=== PATIENT | male | born 1970 | race Caucasian/White ===

== ENCOUNTER → 2016-08-07 | Outpatient (CLI) | payer OTHER | LOC: RAD 13:59 | DX: M25.552 Pain in left hip (principal) ==

== ENCOUNTER → 2016-12-17 | Outpatient (CLI) | payer OTHER ==
--- NOTE | 2016-12-11 08:25 | HISTORY AND PHYSICAL E ---
History and Physical NAME: PAT HOBBS : 1970 AGE: 46Y ADMITTED: 12/17/2016 ROOM: The patient is scheduled for colonoscopy sometime next week in the OR. REFERRAL: [place]. HISTORY OF PRESENT ILLNESS: A 89-year-old male referred to us from the [facility]. He originally was living in the [place] in [place] after CT showing the lesion in the rectosigmoid, he moved to live with his daughter. Now, he is for colon exam. PAST SURGICAL HISTORY: 1. He did have colonoscopy in [facility] 15 years ago. 2. Cholecystectomy. 3. Outpatient colon exam shows possibility of the lesion distal sigmoid or proximal rectum. SOCIAL HISTORY: The patient is . He does not drink. He does not smoke. REVIEW OF SYSTEMS: CARDIAC: High cholesterol. ENDOCRINE: Diabetes. RESPIRATORY: Negative. GASTROINTESTINAL: Abnormal CT sigmoid lesion. The patient does have vitamin D deficiency. FAMILY HISTORY: Father of old age. Mom of old age. PHYSICAL EXAMINATION: GENERAL: The patient is 89. The patient looked younger than his stated age. VITAL SIGNS: Blood pressure 110/70. He has difficulty of hearing. Weight 173. Pulse 80, respirations 18, temp is 98. HEAD, EYES, EARS, NOSE AND THROAT: Normal. ABDOMEN: Soft. NEUROLOGICAL: Exam negative. CONCLUSIONS: Abnormal CT, question rectosigmoid lesion. PLAN: Arrange for colonoscopy to be done in the OR with anesthesia standby. MEDICATIONS: 1. One medication for prostate. 2. One medication for cholesterol. DICTATING PHYSICIAN: MAMIE BORRERO M.D. 1221M 1627 Y#: [id number] ID: [id number] JOB#: [id number] ACCT: [id number] cc:MAMIE BORRERO M.D. >
[~2016-12-17] MED LIST: ALBUTEROL SULFATE 0.083% NEB 2.5 MG/3 ML AMPUL NEB ONE
[2016-12-17 11:03] LABS: ABSOLUTE BASOPHILS # (AUTO) 0.1 10^3/uL (0.0-0.2); ABSOLUTE EOSINOPHILS # (AUTO) 0.2 10^3/uL (0.0-0.6); ABSOLUTE LYMPHOCYTES (AUTO) 2.2 10^3/uL (0.5-4.7); ABSOLUTE MONOCYTES (AUTO) 0.7 10^3/uL (0.1-1.4); ABSOLUTE NEUT (AUTO) 5.6 10^3/uL (1.7-8.2); BASOPHILS % (AUTO) 0.7 % (0-2); EOSINOPHILS % (AUTO) 2.1 % (0-6); HEMATOCRIT 46.4 % (37.9-51.0); HEMOGLOBIN 15.7 g/dL (13.5-17.0); HGB HCT DIFFERENCE 0.7; LYMPHOCYTES % (AUTO) 25.6 % (13-45); MEAN CORPUSCULAR HEMOGLOBIN 32.3 pg (27.0-33.4); MEAN CORPUSCULAR HGB CONC 33.9 g/dL (32.0-36.0); MEAN CORPUSCULAR VOLUME 95 fl (80-97); MONOCYTES % (AUTO) 7.7 % (3-13); RED BLOOD COUNT 4.87 10^6/uL (4.35-5.55); RED CELL DISTRIBUTION WIDTH 12.6 % (11.5-14.0); SEGMENTED NEUTROPHILS % (AUTO) 63.9 % (42-78); WHITE BLOOD COUNT 8.8 10^3/uL (4.0-10.5)
[2016-12-17 11:22] LABS: ALANINE AMINOTRANSFERASE 43 U/L (21-72); ALBUMIN 4.5 g/dL (3.5-5.0); ALKALINE PHOSPHATASE 65 U/L (38-126); ANION GAP 11 (5-19); ASPARTATE AMINO TRANSFERASE 29 U/L (17-59); BILIRUBIN,DIRECT 0.2 mg/dL (0.0-0.4); BILIRUBIN,TOTAL 0.9 mg/dL (0.2-1.3); BLOOD UREA NITROGEN 13 mg/dL (7-20); CALCIUM 10.2 mg/dL (8.4-10.2); CARBON DIOXIDE 26 mmol/L (22-30); CHLORIDE 106 mmol/L (98-107); CHOLESTEROL 176.19 mg/dL (0-200); CREATININE RESULT 0.85 mg/dL (0.52-1.25); Direct HDL 50 mg/dL (>40); GLUCOSE 110 mg/dL (75-110); POTASSIUM 4.6 mmol/L (3.6-5.0); SODIUM 142.7 mmol/L (137-145); TRIGLYCERIDES 117 mg/dL (<150)
[2016-12-17 11:33] LABS: DIRECT LDL 86 mg/dL (<100)
--- NOTE | 2016-12-19 08:48 | PULMONARY FUNCTION TEST ---
DATE OF SERVICE: 12/17/2016 THE VITAL CAPACITY IS NORMAL. THE EXPIRATORY FLOW RATES ARE SLIGHTLY DECREASED. THE FEV1/VC IS 63%, PREDICTED: 81% AFTER BRONCHODILATOR, EXPIRATORY FLOW RATES SHOW SIGNIFICANT IMPROVEMENT. IMPRESSION: GOOD PATIENT EFFORT. SLIGHT OBSTRUCTIVE DEFECT WITH SIGNIFICANT IMPROVEMENT IN EXPIRATORY FLOW RATES AFTER BRONCHODILATOR. CC[facility]
== END ==
LOC: RT 09:45
DX: Z00.00 Encounter for general adult medical examination without abnormal findings (principal); R05 Cough
CPT/HCPCS: 36415; 80053; 80061; 83036; 84443; 85025; 94060

== ENCOUNTER → 2017-02-03 | Outpatient (CLI) | payer OTHER ==
--- NOTE | 2017-02-03 14:29 | RADIOLOGY REPORT (SQ) ---
EXAM DESCRIPTION: CERV SP 6 OR MORE COMPLETED DATE/TIME: 02/03/2017 2:14 pm REASON FOR STUDY: CHRONIC RIGHT SHOULDER PAIN (M25.511) M25.511 PAIN IN RIGHT SHOULDER M54.2 CERVI CALGIA COMPARISON: None. NUMBER OF VIEWS: Seven views. TECHNIQUE: AP, lateral, obliques, flexion, extension, and odontoid radiographic images acquired of t he cervical spine. LIMITATIONS: None. FINDINGS: MINERALIZATION: Normal. ALIGNMENT: Anatomic. FLEXION/EXTENSION: No instability. VERTEBRAE: Vertebral bodies of normal height. DISCS: There is multilevel spondylosis. Changes are most prominent at C3-4 C4-5 and C6-C7. FORAMINA: There is foraminal narrowing on the right at C3-4 and C4-5. LATERAL AND POSTERIOR ELEMENTS: Facets, lateral masses, and spinous processes without significant fin dings. HARDWARE: None in the spine. SOFT TISSUES: No masses or calcifications. Lung apices clear. OTHER: No other significant finding. IMPRESSION: Mild multilevel spondylosis. No instability. NO INSTABILITY ON FLEXION/EXTENSION. TECHNICAL DOCUMENTATION: JOB ID: [id number] [employer]- All Rights Reserved
--- NOTE | 2017-02-03 14:30 | RADIOLOGY REPORT (SQ) ---
EXAM DESCRIPTION: SHOULDER RIGHT 2 OR MORE VIEWS COMPLETED DATE/TIME: 02/03/2017 2:14 pm REASON FOR STUDY: CHRONIC RIGHT SHOULDER PAIN (M25.511) M25.511 PAIN IN RIGHT SHOULDER M54.2 CERVI CALGIA COMPARISON: None. NUMBER OF VIEWS: Three views. TECHNIQUE: Internal rotation, external rotation, and Y view images acquired of the right shoulder. LIMITATIONS: None. FINDINGS: MINERALIZATION: Normal. BONES: No acute fracture or dislocation. No worrisome bone lesions. No significant osteophytes. GLENOHUMERAL JOINT: No significant findings. ACROMIOCLAVICULAR JOINT: No large osteophytes. SOFT TISSUES: No calcifications. VISUALIZED RIBS, SPINE, AND LUNG: No other significant finding. OTHER: No other significant finding. IMPRESSION: NEGATIVE STUDY OF THE RIGHT SHOULDER. NO EXPLANATION FOR PAIN. TECHNICAL DOCUMENTATION: JOB ID: [id number] [employer]- All Rights Reserved
== END ==
LOC: RAD 13:11
PROVIDERS: ATTEND Physical Medicine & Rehabilitation Pain Medicine
DX: M25.511 Pain in right shoulder (principal); G89.29 Other chronic pain; M54.2 Cervicalgia
CPT/HCPCS: 72050

== ENCOUNTER → 2017-03-20 | Outpatient (CLI) | payer OTHER ==
--- NOTE | 2017-03-20 15:01 | RADIOLOGY REPORT (SQ) ---
EXAM DESCRIPTION: UPPER GI/SM BOWEL COMPLETED DATE/TIME: 03/20/2017 11:00 am REASON FOR STUDY: GASTRO ESOPHAGEAL REFLUX W/O ESOPHAGITIS COMPARISON: None. TECHNIQUE: Under fluoroscopic guidance, patient ingested effervescent granules followed by thick an d thin barium. Fluoroscopic spot images and routine radiographic images acquired and stored on PACS . Following evaluation of esophagus and stomach, additional barium administered with serial delayed ab dominal radiographs until colonic identification. Fluoroscopic images recorded of the terminal ileu m. 12 MM BARIUM TABLET GIVEN: Yes. No significant delay in passage. FLUOROSCOPY TIME: 0.4 minutes Multiple fluoroscopic images saved to PACS. LIMITATIONS: None. FINDINGS: NEUROMUSCULAR COORDINATION OF SWALLOW: Normal. No aspiration. ESOPHAGEAL MOTILITY: Normal peristalsis. No esophageal spasm. ESOPHAGEAL MUCOSA: Normal mucosa without masses or ulceration. GASTRO-ESOPHAGEAL JUNCTION: Small sliding hiatal hernia. No reflux observed. STOMACH: Normal without masses or ulcerations. GASTRIC OUTLET: No delay in emptying. Normal pylorus. DUODENAL BULB: Normal distention. No spasm or ulceration. DUODENUM: Mucosa normal. No extrinsic masses or malrotation. PROXIMAL SMALL BOWEL: Normal as visualized. JEJUNUM: Normal mucosal pattern. No dilatation, segmentation, strictures or masses. ILEUM: Normal mucosal pattern. No dilatation, segmentation, strictures or masses. TERMINAL ILEUM AND ILEO-CECAL VALVE: Normal mucosal pattern without cobble-stoning or stricture. Nor mal compression. PROXIMAL COLON: Incompletely imaged. No abnormality. NON-GI TRACT STRUCTURES: No significant finding. OTHER: No other significant finding. IMPRESSION: Small sliding hiatal hernia. No stricture. No reflux observed. Normal small bowel. COMMENT: Quality ID 145: Final reports for procedures using fluoroscopy that document radiation exp osure indices, or exposure time and number of fluorographic images (if radiation exposure indices are not available) TECHNICAL DOCUMENTATION: JOB ID: [id number] [employer]- All Rights Reserved
== END ==
LOC: RAD 08:06
DX: K21.9 Gastro-esophageal reflux disease without esophagitis (principal)
CPT/HCPCS: 74249

== ENCOUNTER → 2017-03-24 | Outpatient (CLI) | payer OTHER ==
[~2017-03-24] MED LIST changes: -ALBUTEROL SULFATE 0.083% NEB 2.5 MG/3 ML AMPUL NEB ONE; +AMINOPHYLLINE INJ/PF 250 MG/10 ML SDV IV ONE; +REGADENOSON INJ 0.4 MG/5 ML DISP.SYRIN IV ONE
--- NOTE | 2017-03-25 18:17 | RADIOLOGY REPORT ---
STRESS TEST REPORT [id number] ROOM#: DATE OF SERVICE: 03/24/2017 AGE: 46Y ORDER#: [id number] REFERRING MD: INDICATION: Chest pains with strenuous activity. PROCEDURE PERFORMED: Rest/stress single-isotope Cardiolite SPECT imaging with exercise stress and gated SPECT imaging with an IV Lexiscan stress and gated SPECT imaging. CLINICAL HISTORY: This 46-year-old male with no known coronary artery disease, but has history of smoking and abnormal plasma protein currently complains of chest pain with strenuous activities. REPORT The patient received IV Lexiscan of 0.4 mg infused over 10 seconds. The resting heart rate was 57 BPM and increased to 87 BPM at end infusion. His resting blood pressure was 129/90 and increased to 133/71 at end infusion. The patient had symptoms of dizziness. No chest pain. Some chest tightness. No shortness of breath. A 12-lead electrocardiogram at rest showed normal sinus rhythm 57 BPM. At end infusion, no ST changes were seen. Myocardial perfusion imaging was performed at rest 60 minutes following the injection of 11.12 mCi of Cardiolite. Ten seconds after the infusion, 40.2 mCi of Cardiolite was injected and flushed. Gated post-stress tomographic imaging was performed 60 minutes after stress. SUMMARY OF FINDINGS/IMPRESSION: The overall quality of the study is good. The left ventricular cavity is noted to be normal in size on both the rest and stress studies. There is no evidence of abnormal transient ischemic dilatation of the left ventricle. SPECT images showed a moderate area of moderate reversible ischemia in the inferior wall with incomplete reversibility. There is no fixed perfusion defect. Gated SPECT imaging showed reduced motion contraction in the basilar inferior wall only. The left ventricular ejection fraction is calculated at 53%. IMPRESSION: Myocardial perfusion imaging is abnormal. There is a moderate area of moderate reversible ischemia in the inferior wall with incomplete reversibility. There is reduced contraction in the basal inferior wall on gated SPECT. The overall left ventricular ejection fraction was within normal at 53%. No prior study for comparison. INTERPRETING PHYSICIAN: MADGA ANDINO M.D. /: 1221M TT: 2103 ID: [id number] /: [id number] TD: 0850 JOB: [id number] cc:MAGDA ANDINO M.D. > VALERIOD
== END ==
LOC: RAD 06:29
DX: R77.9 Abnormality of plasma protein, unspecified (principal)
CPT/HCPCS: 93017; 78452; A9500; J2785; J0280; Q9969

== ENCOUNTER → 2017-04-02 | Outpatient (CLI) | payer OTHER ==
--- NOTE | 2017-04-02 14:56 | RADIOLOGY REPORT (SQ) ---
EXAM DESCRIPTION: CAROTID DOPPLER COMPLETED DATE/TIME: 04/02/2017 2:21 pm REASON FOR STUDY: DIZZINESS R07.9 CHEST PAIN, UNSPECIFIED R42 DIZZINESS AND GIDDINESS COMPARISON: Cervical spine plain films 02/03/2017. No brain parenchymal imaging available for compar kierra TECHNIQUE: Grayscale ultrasound, Doppler velocity and spectra, and color Doppler images acquired of the extra-cranial carotid and vertebral arteries. Images stored on PACS. LIMITATIONS: None. FINDINGS: RIGHT CAROTID CCA Velocities: Within normal limits. ICA Velocities Peak systolic 0.8 m/s. End diastolic 0.25 m/s. Proximal ICA/CCA peak systolic ratio 0.7. Spectra normal. No significant plaque. LEFT CAROTID CCA Velocities: Within normal limits. ICA Velocities Peak systolic 0.62 m/s. End diastolic 0.25 m/s. Proximal ICA/CCA peak systolic ratio 0.7. Spectra normal. No significant plaque. VERTEBRAL ARTERIES: Antegrade flow. Normal waveforms. SUBCLAVIAN ARTERIES: Not evaluated OTHER: No other significant finding. IMPRESSION: NO HEMODYNAMICALLY SIGNIFICANT STENOSIS. COMMENT: Quality ID #[id number]: Velocity criteria are extrapolated from the diameter data as defined by t he Society of Radiologists in Ultrasound Consensus Conference. Radiology 2003: 229; 340-346. TECHNICAL DOCUMENTATION: JOB ID: [id number] [employer]- All Rights Reserved
== END ==
LOC: SP 12:51
PROVIDERS: ATTEND Internal Medicine
DX: R07.9 Chest pain, unspecified (principal); R42 Dizziness and giddiness
CPT/HCPCS: 93306; 93880

== ENCOUNTER → 2017-05-07 | Outpatient (CLI) | payer OTHER ==
--- NOTE | 2017-05-08 12:47 | XCELERA REPORT ---
[address] [address] Lower Extremity Arterial Evaluation Name: PAT HOBBS Age: 46 yrs Gender: Male : 1970 Patient Status: Outpatient Patient Location: Study Date: 05/07/2017 03:23 PM Procedure: A color flow and duplex scan of the lower extremity arteries was performed bilaterally with velocity and waveform anaylsis. Reason For Study: ATHEROSCLEROSIS Ordering Physician: BERNABE COHEN Performed By: Nimesh Zelaya Measurements and Calculations Right Left TICKET SORTER PSV 114.7 96.8 cm/sec Prox PFA PSV -69.7 -65.9 cm/sec Dist SFA PSV -94.9 -86.1 cm/sec Dist Pop A PSV 50.3 53.0 cm/sec Dist HANK PSV 98.5 59.3 cm/sec Dist PHYSICAL SECURITY ENGINEER PSV 27.8 56.2 cm/sec Jignesh Pedis PSV 64.0 55.4 cm/sec Right Side Arterial Evaluation Normal velocity and triphasic waveforms noted from the Common Femoral artery to the infregeniculate vessels. 0 % stenosis noted. Ankle Brachial index is 1.06. Left Side Arterial Evaluation Normal velocity and triphasic waveforms noted from the Common Femoral artery to the infregeniculate vessels. 0 % stenosis noted. Ankle Brachial index is 1.12. Interpretation Summary No hemodynamically significant lesions in the bilateral lower extremities, on duplex imaging, at rest. : BERNABE COHEN > Girish Baxter
== END ==
LOC: SP 15:06
PROVIDERS: ATTEND Internal Medicine
DX: I70.203 Unspecified atherosclerosis of native arteries of extremities, bilateral legs (principal)
CPT/HCPCS: 93925

== ENCOUNTER 2017-05-13 17:54 | Emergency (ER) | payer OTHER ==
[2017-05-13] MEDS ORDERED: FAMOTIDINE 20 MG TABLET PO ONE (19:53)
[2017-05-13] MEDS ORDERED: ASPIRIN 81 MG TABLET, CHEWABLE PO ONE (19:53)
--- NOTE | 2017-05-13 19:56 | ER Document Report ---
ED General - General Chief Complaint: Chest Tightness Stated Complaint: WEAKNESS, TIGHTNESS IN CHEST Time Seen by Provider: 05/13/17 19:34 Notes: Patient is a 46-year-old male comes emergency department for chief complaint of "feeling bad" since 1 PM, he states that he started feeling like he was running a fever, he states he started feeling like he was not breathing well, asked if he had any chest pain and he tells me "no, it was a breathing thing". He denies shortness of breath or chest pain now. He still notes feeling unwell. He denies nausea or vomiting, headache, dizziness, lightheadedness. Past medical history of COPD, former smoker, on inhalers, also states that within the past month he had a stress echo and was told that the inferior wall appeared abnormal. He denies history of NE, denies family history of NE, blood clots, he denies recent travel, surgery, lower extremity swelling. He reports his cough is his normal cough. TRAVEL OUTSIDE OF THE [place] IN LAST 30 DAYS: No - Related Data Allergies/Adverse Reactions: No Known Allergies Allergy (Verified 07/13/16 08:18) Home Medications: Current Home Medications Aspirin 81 mg PO DAILY 05/13/17 [History] Celecoxib [Celebrex 200 mg Capsule] 200 mg PO DAILY 05/13/17 [History] Fluticasone/Vilanterol [Breo Ellipta 100-25 Mcg INH] 1 each IH DAILY 05/13/17 [ History] Ipratropium/Albuterol Sulfate [Combivent Respimat Inhal [place]] 4 gm IH DAILY [History] Magnesium Gluconate [Magimin] 500 mg PO DAILY 05/13/17 [History] Nitroglycerin [Nitrostat] 0.4 mg SL PRN PRN 05/13/17 [History] Omeprazole 20 mg PO DAILY 05/13/17 [History] Past Medical History - Social History Smoking Status: Former Smoker Chew tobacco use (# tins/day): No Frequency of alcohol use: Occasional Drug Abuse: None Family History: Reviewed & Not Pertinent Patient has suicidal ideation: No Patient has homicidal ideation: No Pulmonary Medical History: Reports: Hx COPD Renal/ Medical History: Denies: Hx Peritoneal Dialysis GI Medical History: Reports: Hx Gastroesophageal Reflux Disease, Hx Hiatal Hernia Traumatic Medical History: Reports: Hx Fractures - back, T12-L4? Past Surgical History: Reports: Hx Orthopedic Surgery - Immunizations Hx Diphtheria, Pertussis, Tetanus Vaccination: Yes - unk date Physical Exam - Vital signs Vitals: Temp Pulse Resp BP Pulse Ox 99.1 F 89 18 122/76 97 05/13/17 18:07 05/13/17 18:07 05/13/17 18:07 05/13/17 18:07 05/13/17 18:07 Interpretation: Normal - General General appearance: Alert, Other - Patient slightly disheveled and appears mildly ill - HEENT Head: Normocephalic, Atraumatic Eyes: Normal Conjunctiva: Normal Extraocular movements intact: Yes Eyelashes: Normal Pupils: PERRL Nasal: Normal Mouth/Lips: Normal Mucous membranes: Normal Pharynx: Normal Neck: Normal - Respiratory Respiratory status: No respiratory distress. No: Respiratory distress, Labored , Retractions, Tachypnea Chest status: Nontender Breath sounds: Decreased air movement - Slightly decreased air movement on the left side with coarse breath sounds and rhonchi, otherwise clear lungs Chest palpation: Normal - Cardiovascular Rhythm: Regular. No: Tachycardia Heart sounds: Normal auscultation, S1 appreciated, S2 appreciated Murmur: No - Abdominal Inspection: Normal Distension: No distension Bowel sounds: Normal Tenderness: Nontender Organomegaly: No organomegaly - Back Back: Normal, Nontender. No: Tender - Extremities General upper extremity: Normal inspection, Nontender, Normal color, Normal ROM , Normal temperature General lower extremity: Normal inspection, Nontender, Normal color, Normal ROM , Normal temperature, Normal weight bearing. No: Dinesh's sign - Neurological Neuro grossly intact: Yes Cognition: Normal Orientation: AAOx4 [place] Coma Scale Eye Opening: Spontaneous [place] Coma Scale Verbal: Oriented [place] Coma Scale Motor: Obeys Commands [place] Coma Scale Total: 15 Speech: Normal Motor strength normal: LUE, RUE, LLE, RLE Sensory: Normal - Psychological Associated symptoms: Normal affect, Normal mood - Skin Skin Temperature: Warm Skin Moisture: Dry Skin Color: Normal Course - Re-evaluation Re-evalutation: Patient reporting chills, he is slightly flushed, has a cough, has some decreased breath sounds and rhonchi on the left side on auscultation, clinical presentation is more consistent with pneumonia in patient with COPD without COPD exacerbation. No hypoxia, tachypnea, tachycardia, hypotension. CBC shows mild leukocytosis with elevation of neutrophils but no shift, x-ray does not show any abnormality, chemistry unremarkable, cardiac enzymes cycled and are unremarkable. Patient not complaining of any chest pain. On reevaluation she continues to not have any distress or concerning abnormalities, denies current symptoms other than feeling tired and achy. Patient will be treated for pneumonia, discussed plan of care, discussed follow-up, discussed return precautions, patient states understanding and agreement. - Vital Signs Vital signs: Temp Pulse Resp BP Pulse Ox 99.1 F 89 22 H 109/74 96 05/13/17 18:07 05/13/17 18:07 05/13/17 22:01 05/13/17 23:01 05/13/17 23:01 - Laboratory Result Diagrams: 05/13/17 19:45 05/13/17 19:45 Laboratory results interpreted by me: 05/13/17 19:45 WBC 11.6 H Seg Neutrophils % 81.9 H Lymphocytes % 8.2 L Absolute Neutrophils 9.5 H Discharge - Discharge Clinical Impression: Chills, Weakness, Cough, Respiratory symptoms Condition: Stable Disposition: HOME, SELF-CARE Additional Instructions: Your symptoms and evaluation are most consistent with an early pneumonia. Please take the doxycycline antibiotic as prescribed. Take Tylenol or ibuprofen for fever/chills, drink plenty of fluids and rest. Follow-up with primary care provider. Return to emergency department for any concerning or worsening symptoms including difficulty breathing, chest pain, or any other concerning symptoms. Prescriptions: Doxycycline Hyclate 100 mg PO BID #14 capsule Referrals: KARMA MACHADO MD [Primary Care Provider] - Follow up as needed
--- NOTE | 2017-05-13 20:17 | RADIOLOGY REPORT (SQ) ---
EXAM DESCRIPTION: CHEST SINGLE VIEW COMPLETED DATE/TIME: 05/13/2017 8:05 pm REASON FOR STUDY: ? fever, shortness of breath COMPARISON: None. EXAM PARAMETERS: NUMBER OF VIEWS: One view. TECHNIQUE: Single frontal radiographic view of the chest acquired. RADIATION DOSE: NA LIMITATIONS: None. FINDINGS: LUNGS AND PLEURA: No opacities, masses or pneumothorax. No pleural effusion. MEDIASTINUM AND HILAR STRUCTURES: No masses. Contour normal. HEART AND VASCULAR STRUCTURES: Heart normal in size. Normal vasculature. BONES: No acute findings. HARDWARE: None in the chest. OTHER: No other significant finding. IMPRESSION: NO ACUTE RADIOGRAPHIC FINDING IN THE CHEST. TECHNICAL DOCUMENTATION: JOB ID: [id number]
[2017-05-13 21:09] LABS: ABSOLUTE BASOPHILS # (AUTO) 0.2 10^3/uL (0.0-0.2); ABSOLUTE LYMPHOCYTES (AUTO) 0.9 10^3/uL (0.5-4.7); ABSOLUTE NEUT (AUTO) 9.5 10^3/uL (1.7-8.2); BASOPHILS % (AUTO) 1.4 % (0-2); EOSINOPHILS % (AUTO) 0.2 % (0-6); HEMATOCRIT 42.4 % (37.9-51.0); HEMOGLOBIN 14.7 g/dL (13.5-17.0); HGB HCT DIFFERENCE 1.7; LYMPHOCYTES % (AUTO) 8.2 % (13-45); MEAN CORPUSCULAR HEMOGLOBIN 31.9 pg (27.0-33.4); MEAN CORPUSCULAR HGB CONC 34.6 g/dL (32.0-36.0); MEAN CORPUSCULAR VOLUME 92 fl (80-97); MONOCYTES % (AUTO) 8.3 % (3-13); RED CELL DISTRIBUTION WIDTH 12.5 % (11.5-14.0); SEGMENTED NEUTROPHILS % (AUTO) 81.9 % (42-78); WHITE BLOOD COUNT 11.6 10^3/uL (4.0-10.5)
[2017-05-13 21:17] LABS: ALANINE AMINOTRANSFERASE 33 U/L (21-72); ALBUMIN 4.2 g/dL (3.5-5.0); ALKALINE PHOSPHATASE 82 U/L (38-126); ANION GAP 12 (5-19); ASPARTATE AMINO TRANSFERASE 21 U/L (17-59); BILIRUBIN,DIRECT 0.4 mg/dL (0.0-0.4); BILIRUBIN,TOTAL 0.9 mg/dL (0.2-1.3); BLOOD UREA NITROGEN 13 mg/dL (7-20); CARBON DIOXIDE 24 mmol/L (22-30); CHLORIDE 102 mmol/L (98-107); CREATINE KINASE 134 U/L (55-170); CREATININE RESULT 0.78 mg/dL (0.52-1.25); GLUCOSE 96 mg/dL (75-110); POTASSIUM 3.9 mmol/L (3.6-5.0); SODIUM 138.2 mmol/L (137-145); TOTAL PROTEIN 6.5 g/dL (6.3-8.2)
[2017-05-13 21:29] LABS: CREATINE KINASE MB 0.55 ng/mL (<4.55)
[2017-05-13 21:32] LABS: TROPONIN I < 0.012 ng/mL
[2017-05-13] MEDS ORDERED: DOXYCYCLINE HYCLATE 100 MG TABLET PO ONE (21:58)
[2017-05-13 23:53] VITALS: BP 109/74
--- NOTE | 2017-05-14 20:21 | EKG REPORT ---
SEVERITY:- NORMAL ECG - SINUS RHYTHM : Confirmed by: Kristy Ayon MD 14-May-2017 20:21:20
== END 2017-05-13 23:58 | disposition home or self-care (01) ==
LOC: ER 17:54
DX: R68.83 Chills (without fever) (principal); R53.1 Weakness; R06.00 Dyspnea, unspecified; R05 Cough; R07.9 Chest pain, unspecified; Z79.899 Other long term (current) drug therapy; Z87.891 Personal history of nicotine dependence
CPT/HCPCS: 36415; 71010; 80053; 82550; 82553; 84484; 85025; 87804; 93005; 93010; 99285

== ENCOUNTER 2017-08-23 12:06 | Emergency (ER) | payer SELFPAY ==
[2017-08-23] MEDS ORDERED: LIDOCAINE 5% (700 MG) TRANSDERMAL ADH..PATCH TP ONE (13:23)
[2017-08-23] MEDS ORDERED: METHYLPREDNISOLONE INJ 125 MG/2 ML SDV IM ONE (13:23)
[2017-08-23] MEDS ORDERED: CYCLOBENZAPRINE HCL 10 MG TABLET PO ONE (13:24)
--- NOTE | 2017-08-23 13:25 | ER Document Report ---
ED Neck/Back Problem - General Chief Complaint: Back Pain Stated Complaint: BACK PAIN Time Seen by Provider: 08/23/17 12:41 Mode of Arrival: Ambulatory Information source: Patient Notes: 43-year-old male presents to ED for complaint of chronic back pain with acute flareup on Thursday 2 days ago. He states she has been treated with Flexeril Skelaxin steroids. He states he has had pain since he was about 16 years old has been to chiropractors multiple doctors back specialist and is been told that he had nerve damage. He states he has a doctor at the [facility] in [facility] but is trying to get him into his back specialist but when he moved wrong on Thursday he had excruciating pain. He states he has not been able to work for the last year. TRAVEL OUTSIDE OF THE [place] IN LAST 30 DAYS: No - HPI Patient complains to provider of: Pain, Lower back Onset: Other - Is had pain since he was 16 years old but this flareup started on Thursday Where: Home Onset: Chronic Timing: Still present Quality of pain: Sharp, Throbbing Severity: Severe Pain Level: 5 Context: Other - Chronic pain this flares up intermittently this time he did not do anything Recent injury: No Associated symptoms: Like prior neck/back pain, Radiation to leg, Lower back pain. denies: Constipation, Fever, Incontinence, Motor loss, Numbness/tingling , Sensory loss, Unable to urinate, Upper back pain Exacerbated by: Movement of neck, Movement of trunk, Sitting position Relieved by: Nothing Similar symptoms previously: Yes Recently seen / treated by doctor: No - Related Data Allergies/Adverse Reactions: No Known Allergies Allergy (Verified 08/23/17 12:06) Past Medical History - General Information source: Patient - Social History Smoking Status: Former Smoker Cigarette use (# per day): No Chew tobacco use (# tins/day): No Smoking Education Provided: No Frequency of alcohol use: None Drug Abuse: None Lives with: Family Family History: Reviewed & Not Pertinent Patient has suicidal ideation: No Patient has homicidal ideation: No - Past Medical History Cardiac Medical History: Reports: None Pulmonary Medical History: Reports: Hx COPD EENT Medical History: Reports: None Neurological Medical History: Reports: None Endocrine Medical History: Reports: None Renal/ Medical History: Reports: None Malignancy Medical History: Reports None GI Medical History: Reports: Hx Gastroesophageal Reflux Disease, Hx Hiatal Hernia Musculoskeltal Medical History: Reports Hx Arthritis, Reports Hx Musculoskeletal Deformity, Reports Hx Musculoskeletal Trauma Skin Medical History: Reports None Psychiatric Medical History: Reports: None Traumatic Medical History: Reports: Hx Fractures - back, T12-L4? Infectious Medical History: Reports: None Past Surgical History: Reports: Hx Orthopedic Surgery - Immunizations Immunizations up to date: Yes Hx Diphtheria, Pertussis, Tetanus Vaccination: Yes - unk date Review of Systems - Review of Systems Constitutional: No symptoms reported EENT: No symptoms reported Cardiovascular: No symptoms reported Respiratory: No symptoms reported Gastrointestinal: No symptoms reported. denies: Diarrhea, Nausea, Constipation , Fecal incontinence Genitourinary: No symptoms reported. denies: Incontinence, Urgency, Retention Male Genitourinary: No symptoms reported Musculoskeletal: Back pain, Muscle pain, Muscle stiffness. denies: Neck pain Skin: No symptoms reported Hematologic/Lymphatic: No symptoms reported Neurological/Psychological: No symptoms reported -: Yes All other systems reviewed and negative Physical Exam - Vital signs Vitals: Temp Pulse Resp BP Pulse Ox 98.3 F 94 18 119/89 H 99 08/23/17 12:18 08/23/17 12:18 08/23/17 12:18 08/23/17 12:18 08/23/17 12:18 Interpretation: Normal - General General appearance: Appears well, Alert - HEENT Head: Normocephalic, Atraumatic Eyes: Normal Pupils: PERRL - Respiratory Respiratory status: No respiratory distress Chest status: Nontender Breath sounds: Normal Chest palpation: Normal - Cardiovascular Rhythm: Regular Heart sounds: Normal auscultation Murmur: No - Abdominal Inspection: Normal Distension: No distension Bowel sounds: Normal Tenderness: Nontender Organomegaly: No organomegaly - Back Back: Normal, Tender - Tender just to the left and right of the spine across the buttocks, Scars. No: Deformity/step-off, CVA tenderness, Vertebra tenderness, Scoliosis, Wounds Notes: She denies any signs or symptoms of cauda equina, he denied any loss of control of bowel bladder, loss of control of lower extremities, any loss of sensation to the lower extremities, and any saddle anesthesia. - Extremities General upper extremity: Normal inspection, Nontender, Normal color, Normal ROM , Normal temperature General lower extremity: Normal inspection, Nontender, Normal color, Normal ROM , Normal temperature, Normal weight bearing. No: Dinesh's sign - Neurological Neuro grossly intact: Yes Cognition: Normal Orientation: AAOx4 [place] Coma Scale Eye Opening: Spontaneous [place] Coma Scale Verbal: Oriented [place] Coma Scale Motor: Obeys Commands [place] Coma Scale Total: 15 Speech: Normal Motor strength normal: LUE, RUE, LLE, RLE Sensory: Normal - Psychological Associated symptoms: Normal affect, Normal mood - Skin Skin Temperature: Warm Skin Moisture: Dry Skin Color: Normal Course - Re-evaluation Re-evalutation: 08/23/17 20:49 Patient was discharged home after his x-rays were discussed with him. Patient was treated with Flexeril, Solu-Medrol, and Lidoderm in the emergency room. He states that he has been to many doctors had many MRIs and that he has nerve damage but there is no change in his previous symptoms except for this is an acute exacerbation of his pain. - Vital Signs Vital signs: Temp Pulse Resp BP Pulse Ox 98 F 68 16 94/68 L 98 08/23/17 15:37 08/23/17 15:37 08/23/17 15:37 08/23/17 15:37 08/23/17 15:37 - Diagnostic Test Radiology reviewed: Image reviewed, Reports reviewed Discharge - Discharge Clinical Impression: Chronic back pain Qualifiers: Back pain location: low back pain Back pain laterality: bilateral Sciatica presence: with sciatica Sciatica laterality: bilateral sciatica Qualified Code(s ): M54.42 - Lumbago with sciatica, left side HTN (hypertension) Qualifiers: Hypertension type: unspecified Qualified Code(s): I10 - Essential (primary) hypertension Condition: Stable Disposition: HOME, SELF-CARE Additional Instructions: Chronic Back Pain Chronic back pain (pain persisting longer than three months) is a common problem. A medical evaluation can look for herniated disc, arthritis, osteoporosis, tumors, and infections. But at least half the time, there's no obvious treatable cause. Anxiety and depression tend to worsen back pain. Ibuprofen or other anti-inflammatory medicine can help. A heating pad, used for 15-20 minutes at a time, can ease pain. For this type of back pain, narcotic medicines should be avoided. Muscle relaxers are rarely helpful unless you're having spasms. Activity is important. Find an aerobic exercise program that your back can tolerate. Too much rest makes back pain worse. Specific back exercises are usually prescribed to strengthen the back and abdominal muscles. Often, a physical therapist can help. Avoid heavy lifting, working while bent over, or standing with both knees straight. Most back pain patients do better with a firm mattress. If new symptoms of a "herniated disc" (radiation of pain, numbness, or tingling down the back of the leg or weakness in the leg) occur, you should be re-examined. Chronic Pain Control Stress, inactivity, and depression make pain more severe regardless of the cause of the pain. Stress and poor physical condition can cause pain such as headaches and backache. Relaxation: Rest in a quiet place with your eyes closed for 20 minutes twice daily. Concentrate on a pleasant image, or simply "feel" your breathing. Clear your mind. Stress management: Deal with your "stressors." Either take action, or eliminate the stressor from your life. Don't let things hang over you. Accept those things you can't change. Nutrition: Eat small, balanced meals -- don't skip, don't overeat. Meals should be high-carbohydrate, low-sugar, low-fat. Exercise: Exercise helps painful conditions and eases stress. Get 30 minutes of moderate exercise, five days a week. Do an activity that does not flare your pain. Precautions: Pain which continues to disrupt daily activities, or which changes in nature, requires a medical evaluation. Pain Clinic referral is available. We do not manage chronic pain in the Emergency Department. We will try to appropriately help you through an acute flare of your chronic painful condition , but for on-going chronic pain that does not improve, you will need to see your private doctor or auto customize painter. We do not provide repeated medication management of chronic painful conditions. If you wish, we can provide the name of local pain management physicians. STEROID MEDICATION: You have been given a medicine of the cortisone/steroid class. This medication is used to control inflammation or allergy. It is usually only given for a short period of time, until the acute process subsides. There are usually no side effects from short-term use of cortisone-like medications. Some persons feel an increased sense of well-being and are not sleepy at bedtime. Long-term use of cortisone medications is best avoided, unless required for a severe condition. If your condition does not remit, or relapses after the course of corticosteroid medication, you should consult your physician. Stretching Exercises for the Back The physician has recommended that you begin stretching exercises for your back. These are often used even while the back is painful. However, you should notify the physician if the activities seem to increase your pain. PELVIC TILT: Lie flat on your back with knees bent. Tighten your stomach and buttock muscles so it flattens your lower back against the floor. Hold 10 seconds. Repeat 10 times, twice daily. KNEE RAISE: Lying on the back with knees bent, raise one knee to your chest, then the other. Hold both knees against the chest 10 seconds, then lower one knee at a time. Repeat 10 times, twice daily. PARTIAL TRUNK RAISE: Lie face down, arms at your sides. Keeping your waist on the floor, use your arms raise your chest up. Support yourself on your elbows for 30 seconds. Repeat twice daily, increasing the time to two minutes as you recover. The lidocaine patch was put on your back while in the emergency room. If you do not have insurance to cover these there are [id number] lidocaine patches or you can use the Aspercreme lidocaine and rub it into the area that is hurting you. MUSCLE RELAXERS: Muscle relaxing medications are usually prescribed for acute muscle spasm or injury to the neck and back. They are often combined with antiinflammatory pain medication for increased relief. You may stop the muscle relaxer when the pain and stiffness have improved. Start the medication again if spasms recur. Muscle relaxers may cause drowsiness, especially with the first dose. Do not operate machinery or drive while under the effects of the medication. Most muscle relaxers last up to 24 hours. Do not combine the medication with alcohol. ICE PACKS: Apply ice packs frequently against the painful area. Many different schedules are recommended, such as "20 minutes on, 20 minutes off" or "one hour ice, two hours rest." If you need to work, you may need to go longer between ice treatments. You should plan to have the area ice packed AT LEAST one fourth of the time. The ice should be applied over the wrap, tape, or splint, or over a layer of cloth -- not directly against the skin. Some ice bags have a built-in cloth and can be put directly on the skin. WARM PACKS: After approximately two days, apply gentle heat (such as a heating pad or hot water bottle) for about 20 to 30 minutes about every two hours -- at least four times daily. Warmth and elevation will help you make a more rapid recovery , and will ease the pain considerably. Do not use HOT heat, and never apply heat for longer than 30 minutes. The continuous heat can invisibly damage skin and muscles -- even when no burn is seen on the surface. Damaged muscles can make you MORE sore. FOLLOW-UP CARE: If you have been referred to a physician for follow-up care, call the physician s office for an appointment as you were instructed or within the next two days. If you experience worsening or a significant change in your symptoms, notify the physician immediately or return to the Emergency Department at any time for re-evaluation. Prescriptions: Cyclobenzaprine HCl [Flexeril 10 mg Tablet] 10 mg PO TIDP PRN #15 tab PRN Reason: Prednisone [Sterapred Ds] 1 pkg PO ASDIR PRN 12 Days tab.ds.pk PRN Reason: Forms: Elevated Blood Pressure, Smoking Cessation Education Referrals: BERNABE COHEN MD [Primary Care Provider] - Follow up as needed LUCA VIERA MD [ASSOCIATE] - Follow up as needed
[2017-08-23 13:45] LABS: APPEARANCE,URINE SLIGHTLY-CLOUDY; BILIRUBIN,URINE NEGATIVE (NEGATIVE); COLOR,URINE YELLOW; GLUCOSE, URINE NEGATIVE (NEGATIVE); KETONES,URINE NEGATIVE (NEGATIVE); LEUKOCYTE ESTERASE,URINE NEGATIVE (NEGATIVE); NITRITE,URINE NEGATIVE (NEGATIVE); PROTEIN,URINE NEGATIVE (NEGATIVE); URINE SPECIFIC GRAVITY 1.013; UROBILINOGEN,URINE NEGATIVE mg/dL (<2.0)
[2017-08-23 14:00] LABS: URINE AMPHETAMINES SCREEN NEGATIVE; URINE BARBITURATES SCREEN NEGATIVE; URINE BENZODIAZEPINES SCREEN NEGATIVE; URINE COCAINE SCREEN NEGATIVE; URINE MARIJUANA (THC) SCREEN UNCONFIRMED POSITIVE; URINE METHADONE SCREEN NEGATIVE; URINE PHENCYCLIDINE SCREEN NEGATIVE
--- NOTE | 2017-08-23 14:23 | RADIOLOGY REPORT (SQ) ---
EXAM DESCRIPTION: L SPINE WHOLE COMPLETED DATE/TIME: 08/23/2017 1:59 pm REASON FOR STUDY: low back pain COMPARISON: MRI lumbar spine 07/11/2016. NUMBER OF VIEWS: Five views including obliques. TECHNIQUE: AP, lateral, oblique, and sacral radiographic images acquired of the lumbar spine. LIMITATIONS: None. FINDINGS: MINERALIZATION: Normal. SEGMENTATION: Normal. No transitional anatomy. ALIGNMENT: Normal. VERTEBRAE: Redemonstration of mild anterior wedging of T12 vertebral body and L1 vertebral body. DISCS: Multilevel degenerative disc disease and osteophytosis, worse at L5-S1. POSTERIOR ELEMENTS: Pedicles and facets are intact. No pars defect. Facet arthropathy noted in the lower lumbar spine. HARDWARE: None in the spine. PARASPINAL SOFT TISSUES: Normal. PELVIS: Degenerative changes noted at the SI joints. IMPRESSION: No acute radiographic finding in the lumbar spine. Degenerative changes. TECHNICAL DOCUMENTATION: JOB ID: [id number] 2010 [employer]- All Rights Reserved
[2017-08-23 15:40] VITALS: BP 94/68
== END 2017-08-23 15:37 | disposition home or self-care (01) ==
LOC: ER 12:06
DX: G89.29 Other chronic pain (principal); M54.42 Lumbago with sciatica, left side; M54.41 Lumbago with sciatica, right side; J44.9 Chronic obstructive pulmonary disease, unspecified; I10 Essential (primary) hypertension; Z87.81 Personal history of (healed) traumatic fracture; Z87.891 Personal history of nicotine dependence
CPT/HCPCS: 99283; 96372; 81001; 80307; 72110; J2930

== ENCOUNTER 2019-01-21 14:15 | Emergency (ER) | payer SELFPAY ==
[2019-01-21] MEDS ORDERED: OXYCODONE-ACETAMINOPHEN 5-325 MG TABLET PO ONE (14:29)
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
[2019-01-21] MEDS ORDERED: DIPH/PERTUSS(ACELL)/TETANUS VAC/PF 0.5 ML SYR (>=10YO) IM ONE (15:03)
[2019-01-21] MEDS ORDERED: CEPHALEXIN 500 MG CAPSULE PO ONE (15:15)
--- NOTE | 2019-01-21 15:22 | ER Document Report ---
ED Hand/Wrist Injury - General Chief Complaint: Hand Injury Stated Complaint: LEFT HAND INJURY Time Seen by Provider: 01/21/19 14:29 Primary Care Provider: BERNABE COHEN MD [Primary Care Provider] - Follow up as needed Mode of Arrival: Ambulatory TRAVEL OUTSIDE OF THE [place] IN LAST 30 DAYS: No - HPI Notes: Patient is a 48-year-old male that presents to the emergency department for chief complaint of left hand wound. About 1 hour prior to coming to the emergency room patient shot his left hand with a nail gun. He states it was an automated gun and the nail was about 3 inches in length. It entered in the webspace between his first and second digits on his left hand and did not exit. He states it went down into his wrist. He is having a pain and swelling in his left thenar eminence. He states the pain is worse with any movement. He denies numbness or weakness. He denies excessive bleeding from the wound. Patient's last tetanus vaccine was 2 to 3 years ago. He did receive pain medication in triage which helped his symptoms. Past Medical History: Negative Past Surgical History: Negative Social History: Daily tobacco. Denies alcohol or drug use Family History: Reviewed and noncontributory for presenting illness Allergies: Reviewed, see documented allergy list. REVIEW OF SYSTEMS: CONSTITUTIONAL : No fever No chills No diaphoresis No recent illness EENT: No vision changes No congestion No sore throat CARDIOVASCULAR: No chest pain No palpitations RESPIRATORY: No shortness of breath No cough No difficulty breathing GASTROINTESTINAL: No abdominal pain No nausea No vomiting No diarrhea GENITOURINARY: No dysuria No hematuria No difficulty urinating MUSCULOSKELETAL: No back pain No leg pain Left hand pain SKIN: No rashes hand lesions LYMPHATIC: No swollen, enlarged glands. NEUROLOGICAL: No lightheadedness No headache No weakness No paresthesias PSYCHIATRIC: No anxiety No depression PHYSICAL EXAMINATION: Vital signs reviewed, nursing noted reviewed. GENERAL: Well-appearing, well-nourished and in no acute distress. HEAD: Atraumatic, normocephalic. EYES: Eyes appear normal, extraocular movements intact, sclera anicteric, conjunctiva are normal. ENT: nares patent, oropharynx clear without exudates. Moist mucous membranes. NECK: Normal range of motion, supple without lymphadenopathy LUNGS: Breath sounds clear to auscultation bilaterally and equal. No wheezes rales or rhonchi. HEART: Regular rate and rhythm without murmurs, normal radial pulse on left ABDOMEN: Soft, nontender, normoactive bowel sounds. No rebound, guarding, or rigidity. No masses appreciated. EXTREMITIES: Left thenar eminence edema and tenderness to palpation, normal s trength in wrist flexion, extension, and ulnar and radial deviation. Normal strength of the left thumb and second digit. Edema over the left thenar eminence with no erythema. No bony deformity. No foreign object. good range of motion, no pitting or edema. NEUROLOGICAL: No focal neurological deficits. Moves all extremities spontaneously Motor and sensory grossly intact on exam. PSYCH: Normal mood, normal affect. SKIN: Warm, Dry, normal turgor, pinpoint puncture wound without any active bleeding or drainage to the left webspace between first and second digit - Related Data Allergies/Adverse Reactions: No Known Allergies Allergy (Verified 01/21/19 14:16) Past Medical History - General Information source: Patient - Social History Smoking Status: Former Smoker Frequency of alcohol use: daily Family History: Reviewed & Not Pertinent Patient has suicidal ideation: No Patient has homicidal ideation: No Pulmonary Medical History: Reports: Hx COPD Renal/ Medical History: Denies: Hx Peritoneal Dialysis GI Medical History: Reports: Hx Gastroesophageal Reflux Disease, Hx Hiatal Hernia Musculoskeletal Medical History: Reports Hx Arthritis, Reports Hx Musculoskeletal Deformity, Reports Hx Musculoskeletal Trauma Traumatic Medical History: Reports: Hx Fractures - back, T12-L4? Past Surgical History: Reports: Hx Orthopedic Surgery - Immunizations Immunizations up to date: Yes Hx Diphtheria, Pertussis, Tetanus Vaccination: Yes - unk date Physical Exam - Vital signs Vitals: Temp Pulse Resp BP Pulse Ox 98.1 F 65 16 160/103 H 98 01/21/19 14:21 01/21/19 14:21 01/21/19 14:21 01/21/19 14:21 01/21/19 14:21 Course - Re-evaluation Re-evalutation: 01/21/19 15:22 Vitals reviewed. Nursing notes reviewed. Patient received pain medication in triage. His tetanus vaccine is up-to-date. X-ray shows no acute bony injury. He does not have the nail currently in his hand and states he removed it on site. Patient has edema to the affected area with no immediate signs of infection however he was educated that this is a high risk infection site. Patient will be started on prophylactic antibiotics. He was counseled on wound management as well as return precautions including increased redness, swelling, pain or drainage from the affected area. He was provided a cock-up wrist splint for comfort. He was referred to orthopedics for close outpatient follow-up. Hand X-Ray 01/21/19 14:29 IMPRESSION: NO FRACTURE. No radiopaque foreign body. - Vital Signs Vital signs: Temp Pulse Resp BP Pulse Ox 98.1 F 65 16 160/103 H 98 01/21/19 14:21 01/21/19 14:21 01/21/19 14:21 01/21/19 14:21 01/21/19 14:21 Procedures - Immobilization Left Wrist Time completed: 15:18 Pre-Proc Neuro Vasc Exam: Normal Immobilizer type: Cock-up Performed by: RN Post-Proc Neuro Vasc Exam: Normal Discharge - Discharge Clinical Impression: Puncture wound of hand, left Qualifiers: Encounter type: initial encounter Foreign body presence: without foreign body Qualified Code(s): S61.432A - Puncture wound without foreign body of left hand, initial encounter Condition: Stable Disposition: HOME, SELF-CARE Instructions: Puncture Wound ([facility]) Additional Instructions: Please return to the emergency department if you have any worsening, or concern of your symptoms. Please follow-up with your primary care physician in 2-3 days and any other recommended physicians. If prescribed, take all medications as directed. If you have any questions or concerns do not hesitate to return the emergency department for evaluation. If you have increased pain, redness, swelling, or drainage from your wound on the left hand please return to the emergency room. Contact Dr. Bernal this afternoon for first available appointment for follow-up Wash the affected area 3-4 times daily with soapy water and keep it clean and covered if you are working in a dirty environment Elevate your left hand above the level of your heart ice the affected area 2-3 times daily for 15 minutes at a time Prescriptions: Cephalexin Monohydrate [Keflex 500 mg Capsule] 500 mg PO Q6H 5 Days capsule Referrals: BERNABE COHEN MD [Primary Care Provider] - Follow up as needed ROLO BERNAL MD [ACTIVE STAFF] - Follow up in 3-5 days
[2019-01-21 15:32] VITALS: BP 150/90
== END 2019-01-21 15:32 | disposition home or self-care (01) ==
LOC: ER 14:15
DX: S61.432A Puncture wound without foreign body of left hand, initial encounter (principal); W29.4XXA Contact with nail gun, initial encounter
CPT/HCPCS: 99283; 73130; L3908

== ENCOUNTER 2019-04-05 13:45 | Emergency (ER) | payer SELFPAY ==
--- NOTE | 2019-04-05 14:12 | ER Document Report ---
ED Medical Screen (RME) - General Chief Complaint: Chest Pain Stated Complaint: LEG PAIN, CHEST PAIN Time Seen by Provider: 04/05/19 14:02 Primary Care Provider: BERNABE COHEN MD [Primary Care Provider] - Follow up as needed Mode of Arrival: Wheelchair Information source: Patient Notes: Patient is a 48-year-old male presenting with 2-day history of liver body aches, cramps and no chest pain with shortness of breath that began yesterday. Patient reports history of pneumonia, states he had a similar presentation surgeon with the leg cramping. Patient denies any known fever. 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 He denies any unilateral weakness. He is speaking in full complete sentences and answering all questions appropriately. Exam: Lung sounds clear and equal bilaterally. Heart sounds S1-S2 present with no ectopy noted. Equal podiatry teacher strength bilaterally. I have greeted and performed a rapid initial assessment of this patient. A comprehensive ED assessment and evaluation of the patient, analysis of test results and completion of the medical decision making process will be conducted by additional ED providers. I have specifically instructed the patient or family members with the patient to immediately return to any nursing staff should anything change in the patient's condition or with their chief complaint. This medical record was dictated with voice recognizing software. There may be grammatical, syntax errors that are unintended. TRAVEL OUTSIDE OF THE [place] IN LAST 30 DAYS: No - Related Data Allergies/Adverse Reactions: No Known Allergies Allergy (Verified 01/21/19 14:16) Past Medical History Pulmonary Medical History: Reports: Hx COPD Renal/ Medical History: Denies: Hx Peritoneal Dialysis GI Medical History: Reports: Hx Gastroesophageal Reflux Disease, Hx Hiatal Hernia Musculoskeltal Medical History: Reports Hx Arthritis, Reports Hx Musculoskeletal Deformity, Reports Hx Musculoskeletal Trauma Traumatic Medical History: Reports: Hx Fractures - back, T12-L4? Past Surgical History: Reports: Hx Orthopedic Surgery - Immunizations Immunizations up to date: Yes Hx Diphtheria, Pertussis, Tetanus Vaccination: Yes - unk date History of Influenza Vaccine for 04/2017 - 09/2017 Season: No Physical Exam - Vital signs Vitals: Temp Pulse Resp BP Pulse Ox 98.6 F 76 16 133/99 H 100 04/05/19 13:50 04/05/19 13:50 04/05/19 13:50 04/05/19 13:50 04/05/19 13:50 Course - Vital Signs Vital signs: Temp Pulse Resp BP Pulse Ox 98.6 F 76 16 144/93 H 100 04/05/19 13:50 04/05/19 13:50 04/05/19 13:50 04/05/19 13:56 04/05/19 13:50 Doctor's Discharge - Discharge Referrals: BERNABE COHEN MD [Primary Care Provider] - Follow up as needed
[2019-04-05 15:04] LABS: ABSOLUTE BASOPHILS # (AUTO) 0.1 10^3/uL (0.0-0.2); ABSOLUTE EOSINOPHILS # (AUTO) 0.1 10^3/uL (0.0-0.6); ABSOLUTE LYMPHOCYTES (AUTO) 2.4 10^3/uL (0.5-4.7); ABSOLUTE MONOCYTES (AUTO) 0.8 10^3/uL (0.1-1.4); ABSOLUTE NEUT (AUTO) 3.8 10^3/uL (1.7-8.2); BASOPHILS % (AUTO) 1.1 % (0-2); HEMATOCRIT 50.4 % (37.9-51.0); HEMOGLOBIN 17.4 g/dL (13.5-17.0); LYMPHOCYTES % (AUTO) 33.4 % (13-45); MEAN CORPUSCULAR HEMOGLOBIN 32.2 pg (27.0-33.4); MEAN CORPUSCULAR HGB CONC 34.5 g/dL (32.0-36.0); MEAN CORPUSCULAR VOLUME 93 fl (80-97); MONOCYTES % (AUTO) 10.7 % (3-13); PLATELET COUNT 226 10^3/uL (150-450); RED CELL DISTRIBUTION WIDTH 13.5 % (11.5-14.0); SEGMENTED NEUTROPHILS % (AUTO) 52.8 % (42-78); TOTAL CELLS COUNTED % (AUTO) 100 %; WHITE BLOOD COUNT 7.2 10^3/uL (4.0-10.5)
--- NOTE | 2019-04-05 15:13 | RADIOLOGY REPORT (SQ) ---
EXAM DESCRIPTION: CHEST 2 VIEWS COMPLETED DATE/TIME: 04/05/2019 3:01 pm REASON FOR STUDY: chest pain, shortness of breath COMPARISON: None. EXAM PARAMETERS: NUMBER OF VIEWS: two views TECHNIQUE: Digital Frontal and Lateral radiographic views of the chest acquired. RADIATION DOSE: NA LIMITATIONS: none FINDINGS: LUNGS AND PLEURA: No opacities, masses or pneumothorax. No pleural effusion. MEDIASTINUM AND HILAR STRUCTURES: No masses or contour abnormalities. HEART AND VASCULAR STRUCTURES: Heart normal size. No evidence for failure. BONES: No acute findings. HARDWARE: None in the chest. OTHER: No other significant finding. IMPRESSION: NO ACUTE RADIOGRAPHIC FINDING IN THE CHEST. TECHNICAL DOCUMENTATION: JOB ID: [id number] [employer]- All Rights Reserved Reading location - IP/workstation name: [email or web address]
--- NOTE | 2019-04-05 17:36 | ER Document Report ---
ED General - General Chief Complaint: Chest Pain Stated Complaint: LEG PAIN, CHEST PAIN Time Seen by Provider: 04/05/19 14:02 Primary Care Provider: BERNABE COHEN MD [Primary Care Provider] - Follow up as needed Mode of Arrival: Wheelchair Notes: 48-year-old male presents with 2 complaints. Primarily his leg pain. He says that his legs get cramps and fatigue when he walks more than a few feet, especially hill or upstairs. Is been going on for just a few days. He also says that after the liquor begins he tends to get chest pounding. He denies chest pressure pain but does feel short of breath when this occurs. Long smoking history but quit 10 years ago. Patient had a cardiac cath several years back after a stress test and says that he did not get any stents. He never been diagnosed with peripheral vascular disease. 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 His numbness tingling in the feet. TRAVEL OUTSIDE OF THE [place] IN LAST 30 DAYS: No - Related Data Allergies/Adverse Reactions: No Known Allergies Allergy (Verified 01/21/19 14:16) Past Medical History - General Information source: Patient - Social History Smoking Status: Former Smoker Chew tobacco use (# tins/day): No Frequency of alcohol use: None Drug Abuse: None Family History: Reviewed & Not Pertinent Patient has suicidal ideation: No Patient has homicidal ideation: No Pulmonary Medical History: Reports: Hx COPD Renal/ Medical History: Denies: Hx Peritoneal Dialysis GI Medical History: Reports: Hx Gastroesophageal Reflux Disease, Hx Hiatal Hernia Musculoskeletal Medical History: Reports Hx Arthritis, Reports Hx Musculoskeletal Deformity, Reports Hx Musculoskeletal Trauma Traumatic Medical History: Reports: Hx Fractures - back, T12-L4? Past Surgical History: Reports: Hx Orthopedic Surgery - Immunizations Immunizations up to date: Yes Hx Diphtheria, Pertussis, Tetanus Vaccination: Yes - unk date Review of Systems - Review of Systems Notes: REVIEW OF SYSTEMS GEN: Denies fever, chills, weight loss ENT: Denies sore throat, nasal discharge, ear pain EYES: Denies blurry vision, eye pain, discharge CV: The HPI RESP: Denies cough, shortness of breath, wheezing GI: Denies abdominal pain, nausea, vomiting, diarrhea MSK: HPI SKIN: Denies rash, skin lesions LYMPH: Denies swollen glands/lymph nodes NEURO: Denies headache, focal weakness or numbness, dizziness PSYCH: Denies depression, suicidal or homicidal ideation PHYSICAL EXAMINATION General: No acute distress, well-nourished Head: Atraumatic, normocephalic ENT: Mouth normal, oropharynx moist, no exudates or tonsillar enlargement Eyes: Conjunctiva normal, pupils equal, lids normal Neck: No JVD, supple, no guarding CVS: Normal rate, regular rhythm, no murmurs Resp: No resp distress, equal and normal breath sounds bilaterally GI: Nondistended, soft, no tenderness to palpation, no rebound or guarding Ext: No deformities, no edema, normal range of motion in upper and lower ext. Feet are slightly cool bilaterally. Difficult to palpate pulses. Cap refill slightly delayed on both sides. Back: No CVA or midline TTP Skin: No rash, warm Lymphatic: No lymphadeopathy noted Neuro: Awake, alert. Face symmetric. GCS 15. Physical Exam - Vital signs Vitals: Temp Pulse Resp BP Pulse Ox 98.6 F 76 16 133/99 H 100 04/05/19 13:50 04/05/19 13:50 04/05/19 13:50 04/05/19 13:50 04/05/19 13:50 Course - Re-evaluation Re-evalutation: 04/05/19 18:53 Patient presents with exertional leg pain and pounding in his chest. History of low back disease, but also a significant smoking history. Pulses not palpable but easily dopplerable, all 4 foot pulses. Circular skin to the feet is intact. His chest pounding may be decreased exercise tolerance, COPD or arrhythmia, but his EKG here is normal. Labs were checked which show very mild hyponatremia and otherwise normal according a troponin. Does not seem to be ACS. I did a CTA with runoff to check his arterial circulation and it was normal. This is likely neurogenic claudication, and some form of decreased exercise tolerance. Remote possibility of angina but does not need admission in my opinion based on his signs and symptoms for urgent stress testing can follow-up with primary care. Given discharge instructions to this effect. I have discussed with the patient there likely diagnosis, aftercare plan, follow-up plans and my usual and customary return precautions. They verbalized understanding of this. - Vital Signs Vital signs: Temp Pulse Resp BP Pulse Ox 98.6 F 76 17 144/93 H 99 04/05/19 13:50 04/05/19 13:50 04/05/19 18:00 04/05/19 13:56 04/05/19 18:00 - Laboratory Result Diagrams: 04/05/19 14:34 04/05/19 17:10 Laboratory results interpreted by me: 04/05/19 04/05/19 14:34 17:10 Hgb 17.4 H Sodium 136.9 L Calcium 11.1 H Creatine Kinase 498 H Albumin 5.4 H Discharge - Discharge Clinical Impression: Neurogenic claudication Condition: Good Disposition: HOME, SELF-CARE Instructions: Radiculopathy ([facility]) Additional Instructions: Your leg pain is very likely from nerve damage in your lower back. We did not find evidence that there is any issue with your arterial circulation. Heart attack was also ruled out. It is very important you follow-up with your primary care within 1 week for further testing and treatment. Please return to the ER to have any chest pain numbness or tingling of the toes, or any other concerning symptoms. Referrals: BERNABE COHEN MD [Primary Care Provider] - Follow up in 1 week
[2019-04-05 17:39] LABS: ALBUMIN 5.4 g/dL (3.5-5.0); ALKALINE PHOSPHATASE 80 U/L (38-126); ANION GAP 15 (5-19); ASPARTATE AMINO TRANSFERASE 48 U/L (17-59); BILIRUBIN,DIRECT 0.2 mg/dL (0.0-0.4); BILIRUBIN,TOTAL 1.3 mg/dL (0.2-1.3); BLOOD UREA NITROGEN 18 mg/dL (7-20); CALCIUM 11.1 mg/dL (8.4-10.2); CARBON DIOXIDE 24 mmol/L (22-30); CHLORIDE 98 mmol/L (98-107); CREATINE KINASE 498 U/L (55-170); GLUCOSE 105 mg/dL (75-110); TOTAL PROTEIN 8.2 g/dL (6.3-8.2)
--- NOTE | 2019-04-05 19:18 | RADIOLOGY REPORT (SQ) ---
EXAM DESCRIPTION: CTA ABD AORTA AND EXTREMITY COMPLETED DATE/TIME: 04/05/2019 6:32 pm REASON FOR STUDY: claudicationplease image both legs COMPARISON: None. TECHNIQUE: CT scan of the body and lower extremities performed with intravenous contrast using helic al scanning technique with dynamic intravenous contrast injection. Images reviewed with lung, soft ti ssue, and bone windows. Reconstructed coronal and sagittal MPR images reviewed. All images stored on PACS. Advanced 3D imaging as volume-rendering, MIPs, SSD performed? No All CT scanners at this facility use dose modulation, iterative reconstruction, and/or weight based d osing when appropriate to reduce radiation dose to as low as reasonably achievable (ALARA). [facility]: Dose Right [facility]: CareDose [facility]: Dose Right [facility]: Teradose 4D [facility]: [employer] CONTRAST TYPE AND DOSE: contrast/concentration: Isovue 350.00 mg/ml; Total Contrast Delivered: 100.0 ml; Total Saline Delivered: 72.0 ml RENAL FUNCTION: BUN 18 creatinine 0.8 LIMITATIONS: None. FINDINGS: AORTA AND VESSELS: No aneurysm. No dissection. Renal arteries, SMA, celiac without stenosi s. LUNG BASES: Not included LIVER: Not included SPLEEN: Not included PANCREAS: Not included GALLBLADDER: Not included ADRENAL GLANDS: Not included RIGHT KIDNEY AND URETER: Included portion is normal. LEFT KIDNEY AND URETER: Not included RETROPERITONEUM: No retroperitoneal adenopathy, hemorrhage or masses. BOWEL AND PERITONEAL CAVITY: No masses or inflammatory changes. No free fluid or peritoneal masses. APPENDIX: Normal. ABDOMINAL WALL: No masses. No hernias. BONY STRUCTURES: No significant or acute findings. 3-D IMAGING: Confirms the above findings. OTHER: No other significant finding. LOWER EXTREMITIES: RIGHT LEG: FEMORAL ARTERIES: No occlusions or significant stenoses. POPLITEAL ARTERY: No aneurysm. No occlusions or significant stenoses. TIBIOPERONEAL TRUNK AND RUNOFF VESSELS: The anterior tibial and peroneal arteries are attenuated. Th e posterior tibial artery extends to the foot. OTHER: No other significant finding. LEFT LEG: FEMORAL ARTERIES: No occlusions or significant stenoses. POPLITEAL ARTERY: No aneurysm. No occlusions or significant stenoses. TIBIOPERONEAL TRUNK AND RUNOFF VESSELS: The anterior tibial artery is attenuated. The posterior tibi al and peroneal arteries extend to the foot. OTHER: No other significant finding. IMPRESSION: No aneurysm, dissection, or significant stenosis of the aorta, iliac vessels, femoral, o r popliteal arteries. On the right side the anterior tibial and peroneal arteries are attenuated. P osterior tibial artery extends to the foot. On the left side, the anterior tibial artery is attenuat ed. The posterior tibial and peroneal arteries extend to the foot. TECHNICAL DOCUMENTATION: JOB ID: [id number] Quality ID # [id number]: Final reports with documentation of one or more dose reduction techniques (e.g., Au tomated exposure control, adjustment of the mA and/or kV according to patient size, use of iterative reconstruction technique) 2010 [employer]- All Rights Reserved Reading location - IP/workstation name: [email or web address]
[2019-04-05 20:18] VITALS: BP 121/90
--- NOTE | 2019-04-05 20:56 | EKG REPORT ---
SEVERITY:- NORMAL ECG - SINUS RHYTHM : Confirmed by: Kristy Ayon MD 05-Apr-2019 20:55:26
== END 2019-04-05 20:18 | disposition home or self-care (01) ==
LOC: ER 13:45
DX: I73.9 Peripheral vascular disease, unspecified (principal); E87.1 Hypo-osmolality and hyponatremia; R25.2 Cramp and spasm; M79.605 Pain in left leg; M79.604 Pain in right leg; R09.89 Other specified symptoms and signs involving the circulatory and respiratory systems; R53.83 Other fatigue; R20.0 Anesthesia of skin; R20.2 Paresthesia of skin; Z87.891 Personal history of nicotine dependence; J44.9 Chronic obstructive pulmonary disease, unspecified
CPT/HCPCS: 36415; 71046; 75635; 80053; 82550; 84484; 85025; 93005; 93010; 99285

== ENCOUNTER → 2019-05-10 | Outpatient (CLI) | payer OTHER ==
--- NOTE | 2019-05-11 08:36 | XCELERA REPORT ---
[address] [address] Tel: [phone] Fax: [phone] Lower Extremity Arterial Evaluation Name: PAT HOBBS Age: 48 yrs Gender: Male : 1970 Patient Status: Outpatient Patient Location: [facility] Study Date: 05/10/2019 02:45 PM Procedure: Ankle brachial indicies performed. Reason For Study: R09.89 Ordering Physician: BERNABE COHEN Performed By: Juany Hernández Right Side Arterial Evaluation DAYANARA in Anterior Tibial:1.27. Multiphasic waveform. Left Side Arterial Evaluation DAYANARA in Posterior Tibial:1.27. Multiphasic waveform. Interpretation Summary Normal DAYANARA. Suggesting normal arterial system, within the limitations of this technique. : BERNABE COHEN > Girish Baxter
== END ==
LOC: SP 13:35
PROVIDERS: ATTEND Internal Medicine
DX: R09.89 Other specified symptoms and signs involving the circulatory and respiratory systems (principal)
CPT/HCPCS: 93922